=== PATIENT | male | born 1935 | race Caucasian/White ===

== ENCOUNTER 2018-02-27 14:07 | Emergency (ER) | payer MEDICARE, OTHER ==
[~2018-02-27] VITALS: Ht 177.8 cm; Wt 72.1 kg
[~2018-02-27 14:07] MED LIST: CARTIA XT240 MG PO; GABAPENTIN400 MG PO; ISOSORBIDE MONO30 MG PO
--- OUTSIDE RECORDS SUMMARY | 2018-02-27 14:09 | XMS REPORT ---
Author Author [facility] Address Unknown Phone Unavailable Care Team Providers Care Conveyor Tender Name Role Phone Unavailable Unavailable Payers Payer Name Policy Type Policy Number Effective Date Expiration Date Problems This patient has no known problems. Allergies, Adverse Reactions, Alerts Allergy Name Allergy Type Status Severity Reaction(s) Onset Date Inactive Date Treating Clinician Comments No Known Allergies DA Active U 2017-12-13 00:00:00 No Known Contrast Allergies DA Active U 2007-08-14 00:00:00 No Known Drug Allergies DA Active U 2007-08-14 00:00:00 No Known Food Allergies DA Active U 2007-08-14 00:00:00 No Known Other Allergies DA Active U 2007-08-14 00:00:00 Medications This patient has no known medications.
--- OUTSIDE RECORDS SUMMARY | 2018-02-27 14:09 | XMS REPORT | Summary of Care ---
Author Author [facility] Out[facility] [place] Address Unknown Phone Unavailable Encounter HQ Encntr_alias(FIN) [id number] Date(s): 10/11/16 - 10/11/16 [facility] [place] [address] [place] [phone] Discharge Disposition: Home or Self Care Attending Physician: Vahid Roldan MD Vital Signs No data available for this section Problem List No data available for this section Allergies, Adverse Reactions, Alerts No data available for this section Medications No data available for this section Results No data available for this section Immunizations No data available for this section Procedures No data available for this section Social History No data available for this section Assessment and Plan No data available for this section
--- OUTSIDE RECORDS SUMMARY | 2018-02-27 14:09 | XMS REPORT | Continuity of Care Document ---
Author Author [facility] Address Unknown Phone Unavailable Problems Problem Status Onset Date Classification Date Reported Comments Source I10 - ESSENTIAL (PRIMARY) HYPERTENSI R60 Active 10/11/2016 [facility] Medications Medication Details Route Status Patient Instructions Ordering Provider Order Date Source Allergies, Adverse Reactions, Alerts Substance Category Reaction Severity Reaction type Status Date Reported Comments Source Immunizations Immunization Date Given Site Status Last Updated Comments Source Results Order Name Results Value Reference Range Date Interpretation Comments Source Chest 2 views DX Chest 2 views DX EXAM: XR CHEST 2 VIEWS DATE: 10/11/2016 3:01 PM CDT INDICATION: - I10 Essential (primary) hypertension COMPARISON: 01/19/[address] chest from 03/28/2020 TECHNIQUE: PA and lateral chest radiographs FINDINGS: There is unfolding of the aortic arch. There are prominent reticular interstitial markings in bilateral lung capone with preserved lung volumes. No acute focus of consolidation or atelectasis. No pleural effusion. Linear atelectasis in the left lung mid zone. The heart size is normal. No acute bony abnormality is identified. IMPRESSION: Prominent reticular interstitial markings in both lung capone without an acute focus of consolidation. Recommended noncontrast CT chest for better evaluation. 10/11/2016 - - Read by: Bijal Hayes MD Dictated Date/time: 10/11/16 15:38 Electronically Signed by: Bijal Hayes MD 10/11/16 15:40 FINAL REPORT [facility] Vital Signs Vital Sign Value Date Comments Source Encounters Location Location Details Encounter Type Encounter Number Reason For Visit Attending Provider ADM Date DC Date Status Source [facility] [id number] Vahid Roldan 10/11/2016 10/12/2016 [facility] Procedures Procedure Code Date Perfomer Comments Source
--- NOTE | 2018-02-27 14:50 | Diagnostic Imaging Report ---
EXAMINATION: PA and lateral views of the chest. COMPARISON: None CLINICAL HISTORY: Coughing DISCUSSION: Lines/tubes: None. Lungs: Mild increased retrosternal air and flattening of the hemidiaphragms, suggesting COPD changes. There is mild prominence of the interstitial markings bilaterally, likely reflecting chronic interstitial changes. No consolidation or pulmonary edema. Pleura: There is no pleural effusion or pneumothorax. Heart and mediastinum: Cardiomediastinal silhouette is unremarkable. Pulmonary vasculature is normal. Atherosclerotic calcification of the aortic arch. Bones and soft tissues: No acute bony abnormalities. Degenerative changes in the thoracic spine. Generalized osteopenia. IMPRESSION: COPD changes, without acute cardiopulmonary abnormalities. Signed by: Dr. Anuel Pérez M.D. on 02/27/2018 2:46 PM
== END 2018-02-27 15:18 | disposition home or self-care (01) ==
LOC: FSED 14:07
DX: R05 Cough (principal); J06.9 Acute upper respiratory infection, unspecified; J44.9 Chronic obstructive pulmonary disease, unspecified; I10 Essential (primary) hypertension; I25.10 Atherosclerotic heart disease of native coronary artery without angina pectoris; J61 Pneumoconiosis due to asbestos and other mineral fibers
CPT/HCPCS: 71046; 99283

== ENCOUNTER 2018-05-22 12:55 | Emergency (ER) | payer MEDICARE, OTHER ==
[~2018-05-22] VITALS: Ht 177.8 cm; Wt 72.1 kg
[2018-05-22] MEDS ORDERED: CEFTRIAXONE SOD 1 GM VIAL IM ONE (13:30)
[2018-05-22] MEDS ORDERED: ALBUTEROL/IPRATROPIUM 3 ML NEB NEB ONE (13:30)
--- NOTE | 2018-05-22 13:44 | Diagnostic Imaging Report ---
EXAMINATION: PA and lateral views of the chest. COMPARISON: 02/27/2018 CLINICAL HISTORY: Cough x4 days DISCUSSION: As before, the lungs are hyperinflated with increased AP diameter of the chest. No new consolidation. Stable mild prominence of the pulmonary interstitium likely age-related fibrotic changes. No new pleural effusion or pneumothorax. Stable cardiomediastinal contour with atherosclerotic calcification of the thoracic aorta. Normal heart size. No pulmonary edema. No acute osseous abnormality. IMPRESSION: No acute cardiopulmonary abnormality. Stable findings of COPD and chronic interstitial changes. Signed by: Dr. Timi Gomez M.D. on 05/22/2018 1:41 PM
[2018-05-22] MEDS ORDERED: CEFDINIR300 MG PO (13:53)
[2018-05-22] MEDS ORDERED: IPRAT-ALBUT 0.5-3 ML INH (13:56)
[2018-05-22] MEDS ORDERED: PREDNISONE20 MG PO (14:01)
== END 2018-05-22 14:10 | disposition home or self-care (01) ==
LOC: FSED 12:55
DX: R05 Cough (principal); J20.9 Acute bronchitis, unspecified; J44.1 Chronic obstructive pulmonary disease with (acute) exacerbation; I10 Essential (primary) hypertension; I25.118 Atherosclerotic heart disease of native coronary artery with other forms of angina pectoris; F17.210 Nicotine dependence, cigarettes, uncomplicated
CPT/HCPCS: 71046; 94760; 99283; J0696

== ENCOUNTER 2018-05-24 13:34 | Emergency (ER) | payer MEDICARE, OTHER ==
[~2018-05-24] VITALS: Ht 177.8 cm; Wt 64.9 kg
[~2018-05-24 13:34] MED LIST changes: +CEFDINIR300 MG PO; +IPRAT-ALBUT 0.5-3 ML INH; +PREDNISONE20 MG PO
[2018-05-24] MEDS ORDERED: DOXYCYCLINE HY100 MG PO (14:29)
[2018-05-24] MEDS ORDERED: TESSALON PERLE100 MG PO (14:29)
--- NOTE | 2018-05-24 16:03 | Diagnostic Imaging Report ---
EXAMINATION: CXR 2 VIEW - HOPD INDICATION: Cough and chest pain getting worse ^[id number] ^1500 COMPARISON: Chest radiograph 05/22/2018 and 02/27/2018 FINDINGS: PA and lateral views TUBES and LINES: None. LUNGS: Hyperinflated lungs. Bilateral emphysema. Persistent bilateral hilar and lower lobes interstitial lung markings with peribronchial wall thickening. No new consolidations. PLEURA: No pleural effusion or pneumothorax. HEART AND MEDIASTINUM: The cardiomediastinal silhouette is unremarkable. BONES AND SOFT TISSUES: No acute osseous lesion. Soft tissues are unremarkable. UPPER ABDOMEN: No free air under the diaphragm. IMPRESSION: Persistent bilateral increased interstitial lung markings with peribronchial wall thickening suggestive of acute bronchitis. Signed by: Dr. Beth Issa M.D. on 05/24/2018 3:59 PM
[2018-05-24 16:16] VITALS: BP 142/77
== END 2018-05-24 16:18 | disposition home or self-care (01) ==
LOC: FSED 13:34
DX: R05 Cough (principal); J20.9 Acute bronchitis, unspecified; I48.91 Unspecified atrial fibrillation; Z95.5 Presence of coronary angioplasty implant and graft; F17.210 Nicotine dependence, cigarettes, uncomplicated
CPT/HCPCS: 71046; 80048; 85025; 87400; 99283

== ENCOUNTER 2018-05-31 14:47 | Emergency (ER) | payer MEDICARE, OTHER ==
[~2018-05-31] VITALS: Ht 177.8 cm; Wt 64.9 kg
[~2018-05-31 14:47] MED LIST changes: +DOXYCYCLINE HY100 MG PO; +TESSALON PERLE100 MG PO
[2018-05-31] MEDS ORDERED: IOPAMIDOL 370 MG/ML 50ML INFUS..BTL INJ ONE (17:00)
--- NOTE | 2018-05-31 17:39 | Diagnostic Imaging Report ---
EXAM: CT Abdomen and Pelvis WITH contrast INDICATION: History of inguinal hernia now with pain. COMPARISON: None. TECHNIQUE: Abdomen and pelvis were scanned utilizing a multidetector helical scanner from the lung base to the pubic symphysis after administration of IV contrast. Coronal and sagittal reformations were obtained. Routine protocol was performed. Scan was performed when during portal venous phase. Dose modulation, iterative reconstruction, and/or weight based adjustment of the mA/kV was utilized to reduce the radiation dose to as low as reasonably achievable. IV CONTRAST: 100 cc of Isovue 370. ORAL CONTRAST: Water COMPLICATIONS: None RADIATION DOSE: Total DLP: 484.5 mGy*cm CTDIvol has been reviewed. It is below the limits set by the Radiation Protocol Committee (RPC). FINDINGS: LINES and TUBES: None. LOWER THORAX: There are clustered nodules within the right lung base. There is a 4 mm nodule at the right lung base on series 2, image 8. Coronary atherosclerosis. HEPATOBILIARY: No evidence of focal lesion. No biliary ductal dilation. GALLBLADDER: No radio-opaque stones or sludge. No wall thickening. SPLEEN: No splenomegaly. The spleen appears atrophic with mild hypodense surrounding fluid/soft tissue density (35 HU) measuring up to 0.6 cm in maximal thickness. PANCREAS: No focal masses or ductal dilatation. ADRENALS: No adrenal nodules KIDNEYS/URETERS: Kidneys enhance symmetrically. No evidence of hydronephrosis, solid mass, or stone. There is no rotation of the left kidney. GI TRACT: No evidence of wall thickening or distension. Appendix is not clearly identified. There is however no fat stranding or adenopathy in the right lower quadrant to suggest appendicitis. PELVIC ORGANS/BLADDER: The prostate is enlarged, measuring up to 5 cm and is heterogeneous with a left-sided 1 cm ovoid nodular area of hyperdensity. The bladder is unremarkable in appearance. LYMPH NODES: No lymphadenopathy. VESSELS: There are extensive atherosclerotic changes in the abdominal aorta and major arterial branches. PERITONEUM / RETROPERITONEUM: No free air or fluid. BONES AND SOFT TISSUES: No acute osseous abnormality. Bilateral hydroceles are noted. Small fat containing bilateral hernias. CONCLUSION: Small bilateral fat-containing internal hernias. No evidence of incarceration. Perisplenic soft tissue or hyperdense fluid is indeterminate. Correlation with any history of trauma is suggested. No evidence of lymphadenopathy or other findings suggestive of malignancy. If there is no history of trauma, then non-emergent splenic MRI is suggested. Prostatomegaly with a 1 cm ovoid hyperdense lesion in the left prostate lobe. Suggest correlation with PSA and urologic follow-up. Clustered nodules in the right lower lobe measuring up to 4 mm, likely infectious or inflammatory. In a low risk patient, no further follow-up is recommended. If the patient has a history of smoking or other risk factor for malignancy, an optional follow-up chest CT may be considered. Signed by: Dr. Niko Peralta MD on 05/31/2018 5:35 PM
== END 2018-05-31 18:33 | disposition home or self-care (01) ==
LOC: FSED 14:47
DX: K40.90 Unilateral inguinal hernia, without obstruction or gangrene, not specified as recurrent (principal)
CPT/HCPCS: 74177; 80053; 81003; 85025; 99284; Q9967

== ENCOUNTER → 2020-01-27 | Outpatient (CLI) | payer MEDICARE, OTHER ==
[~2020-01-27] MED LIST changes: +IOPAMIDOL 370 MG/ML 200 ML INFUS..BTL INJ ONE; +SODIUM CHLORIDE 0.9% 50ML 50 ML ONE
[2020-01-27 11:43] LABS: BLOOD UREA NITROGEN 11 mg/dL (7-26); BUN/CREATININE RATIO 13 (6-25); CREATININE, SERUM 0.82 mg/dL (0.72-1.25); EST GLOMERULAR FILTRATION RATE > 60 ML/MIN (60-)
== END ==
LOC: CT 10:58
PROVIDERS: ATTEND Internal Medicine Gastroenterology
DX: R94.2 Abnormal results of pulmonary function studies (principal)
CPT/HCPCS: 36415; 71260; 82565; 84520; Q9967

== ENCOUNTER → 2020-03-21 | Outpatient (CLI) | payer MEDICARE, OTHER ==
[~2020-03-21] MED LIST changes: -IOPAMIDOL 370 MG/ML 200 ML INFUS..BTL INJ ONE; -SODIUM CHLORIDE 0.9% 50ML 50 ML ONE
== END ==
LOC: MRI 12:46
PROVIDERS: ATTEND Student in an Organized Health Care Education/Training Program
DX: G37.3 Acute transverse myelitis in demyelinating disease of central nervous system (principal)
CPT/HCPCS: 72141; 72146; 72148